=== PATIENT | female | born 1995 | race Caucasian/White ===

== ENCOUNTER 2017-05-24 04:53 | Outpatient (CLI) | payer OTHER | END 2017-05-24 04:54 | disposition critical access hospital (66) | LOC: EMS 04:53 | PROVIDERS: ATTEND Surgery | DX: R06.00 Dyspnea, unspecified (principal); R05 Cough | CPT/HCPCS: A0425; A0427 ==

== ENCOUNTER 2017-05-24 05:21 | Emergency (ER) | payer OTHER ==
[2017-05-24] MEDS ORDERED: IPRATROPIUM/ALBUTEROL 3 ML NEB INH STA (05:23)
[2017-05-24] MEDS ORDERED: IPRATROPIUM/ALBUTEROL 3 ML NEB INH ONE (05:31)
[2017-05-24] MEDS ORDERED: ALBUTEROL NEB 2.5 MG/3 ML INH STA ×2 (06:02→07:18)
--- NOTE | 2017-05-24 06:13 | ED Physician Documentation ---
PD HPI DYSPNEA - Stated complaint Stated Complaint: SOA - Chief complaint Chief Complaint: Resp - History obtained from History obtained from: Patient, EMS - History of Present Illness Timing - onset: How many days ago (3) Timing - onset during: Rest Timing - details: Gradual onset, Still present Inciting event(s): URI, Exposure (ie smoke) Improved by: O2, Inhaler/neb Worsened by: Laying flat, Coughing Associated symptoms: Cough, Wheezing. No: Fever, Chest pain / discomfort Similar symptoms before: Work up / diagnostics, Treatment Recently seen: Not recently seen - Additional information Additional information: Patient is a 21 year old female with a history of asthma who is presenting to the emergency department for wheezing and cough. Patient states that she has been coughing for the last few days and today on a fieldtrip and her symptoms got worse. patient had been using her inhaler about 4-5 times a day recently. Review of Systems Constitutional: denies: Fever, Chills Eyes: denies: Decreased vision, Photophobia Ears: denies: Ear pain, Drainage/discharge Nose: reports: Congestion Throat: denies: Sore throat Cardiac: denies: Chest pain / pressure Respiratory: reports: Dyspnea, Cough, Wheezing GI: denies: Abdominal Pain, Nausea, Vomiting : reports: Reviewed and negative Skin: denies: Rash Musculoskeletal: reports: Reviewed and negative Neurologic: denies: Generalized weakness, Focal weakness, Altered mental status , Headache, Head injury, LOC Immunocompromised: denies: Immunocompromised PD PAST MEDICAL HISTORY - Past Medical History Past Medical History: Yes Respiratory: Asthma - Past Surgical History Past Surgical History: No - Present Medications Home Medications: Ambulatory Orders Medication Instructions Recorded Confirmed Albuterol 1 puffs INH PRN PRN 05/24/17 05/24/17 Prednisone 40 mg PO DAILY 5 Days tablet 05/24/17 - Allergies Allergies/Adverse Reactions: Allergies Allergy/AdvReac Type Severity Reaction Status Date / Time latex Allergy Itching Verified 05/24/17 05:25 - Social History Does the pt smoke?: No Smoking Status: Never smoker Does the pt drink ETOH?: No - Immunizations Immunizations are current?: Yes PD ED PE NORMAL - Vitals Vital signs reviewed: Yes - General General: Alert and oriented X 3 - HEENT HEENT: Atraumatic, PERRL, Moist mucous membranes - Neck Neck: Supple, no meningeal sign, No JVD - Cardiac Cardiac: No murmur - Abdomen Abdomen: Soft, Non tender, Non distended - Derm Derm: Normal color, Warm and dry, No rash - Extremities Extremities: No deformity, No tenderness to palpate, No edema, No calf tenderness / cord - Neuro Neuro: Alert and oriented X 3, gwot ia/ilo intelligence support 2-12 intact, No motor deficit, No sensory deficit, Normal speech - Psych Psych: Normal mood, Normal affect PD ED PE EXPANDED - Cardiac Cardiac: Tachy - Respiratory Respiratory: Accessory mm use, Wheezing, Rhonchi, Right upper lobe, Right middle lobe, Right lower lobe, Left upper lobe, Left lower lobe Results - Vitals Vitals: Vital Signs - 24 hr 05/24/17 05/24/17 05/24/17 05:23 05:30 05:32 Temperature 36.9 C Heart Rate 115 H 110 H 126 H Respiratory 20 20 20 Rate Blood Pressure 105/63 105/72 O2 Saturation 96 100 05/24/17 06:10 Temperature Heart Rate 135 H Respiratory 18 Rate Blood Pressure O2 Saturation Oxygen O2 Source Room air - Rads (name of study) chest x-ray Radiology: Final report received (findings suggestive of bronchitis) PD MEDICAL DECISION MAKING - ED course Complexity details: reviewed old records, reviewed results, re-evaluated patient , considered differential, d/w patient, d/w family ED course: Patient was seen and examined at bedside. patient had already received 1 duoneb and solumedrol in the field. Patient was feeling better but was still wheezing. Patient was treated with 2 additional duonebs. chest x-ray was ordered due to patient's productive cough. when patient returned from x-ray she was still wheezing and was treated with additional albuterol. Patient's x- ray showed bronchitis but no acute pneumonia. Patient's wheezing continued to improve but was still present. Magnesium was ordered and started but made the patient feel sick so it was stopped. Patient needed a few more breathing treatments but was tachycardic and jittery. Patient was signed over to Dr. Carter pending re-evaluation and disposition. Departure - Departure Clinical Impression: Bronchitis, Asthma Condition: Good Instructions: ED Bronchitis Asthmatic Follow-Up: primary,care provider [Other] - Within 1 week Prescriptions: Prednisone 40 mg PO DAILY 5 Days tablet Comments: Your symptoms today are being caused by asthma and bronchitis. You will need to be on steroids for the next five days. You can increase your albuterol to every few hours as needed in the acute phase. If your symptoms persist or worsen you may return to this or any other emergency department as needed at any time.
[2017-05-24] MEDS ORDERED: ALBUTEROL NEB 2.5 MG/3 ML INH ONE ×2 (06:14→07:46)
--- NOTE | 2017-05-24 06:14 | XRAY Preliminary Report ---
Exam: XR Chest 2 View PA/LAT IMPRESSION: Suspected bronchitis. No consolidative pneumonia seen. [id number]
--- NOTE | 2017-05-24 06:23 | XRAY Report ---
EXAM: CHEST RADIOGRAPHY EXAM DATE: 05/24/2017 05:55 AM. CLINICAL HISTORY: Fever, productive cough. COMPARISON: None. TECHNIQUE: 2 views. FINDINGS: Lungs/Pleura: Bronchial wall thickening without focal pneumonia seen. No pneumothorax or effusion. Mediastinum: Heart and mediastinal contours are unremarkable. Other: None. IMPRESSION: Suspect bronchitis. No consolidative pneumonia seen. [facility] Referring Provider Line: [phone] SITE ID: [id number]
[2017-05-24] MEDS ORDERED: MAGNESIUM SULFATE 2 GRAM 2 GM/50 ML BAG IV ONE ×2 (06:40→06:55)
[2017-05-24 08:32] VITALS: BP 112/63
--- NOTE | 2017-05-24 10:27 | ED Physician Documentation ---
PD HPI DYSPNEA - Stated complaint Stated Complaint: SOA - Chief complaint Chief Complaint: Resp PD PAST MEDICAL HISTORY - Past Medical History Past Medical History: Yes Respiratory: Asthma - Past Surgical History Past Surgical History: No - Present Medications Home Medications: Ambulatory Orders Medication Instructions Recorded Confirmed Albuterol 1 puffs INH PRN PRN 05/24/17 05/24/17 Prednisone 40 mg PO DAILY 5 Days tablet 05/24/17 - Allergies Allergies/Adverse Reactions: Allergies Allergy/AdvReac Type Severity Reaction Status Date / Time latex Allergy Itching Verified 05/24/17 05:25 - Social History Does the pt smoke?: No Smoking Status: Never smoker Does the pt drink ETOH?: No - Immunizations Immunizations are current?: Yes Results - Vitals Vitals: Vital Signs - 24 hr 05/24/17 05/24/17 05/24/17 05:23 05:30 05:32 Temperature 36.9 C Heart Rate 115 H 110 H 126 H Respiratory 20 20 20 Rate Blood Pressure 105/63 105/72 O2 Saturation 96 100 05/24/17 05/24/17 05/24/17 06:10 07:45 08:31 Temperature Heart Rate 135 H 140 H 98 Respiratory 18 16 15 Rate Blood Pressure 112/63 O2 Saturation 98 Oxygen O2 Source Room air Departure - Departure Disposition: 01 Home, Self Care Clinical Impression: Bronchitis, Asthma Condition: Good Instructions: ED Bronchitis Asthmatic Follow-Up: primary,care provider [Other] - Within 1 week Prescriptions: Prednisone 40 mg PO DAILY 5 Days tablet Comments: Your symptoms today are being caused by asthma and bronchitis. You will need to be on steroids for the next five days. You can increase your albuterol to every few hours as needed in the acute phase. If your symptoms persist or worsen you may return to this or any other emergency department as needed at any time.
== END 2017-05-24 10:44 | disposition home or self-care (01) ==
LOC: ED 05:21
DX: J45.909 Unspecified asthma, uncomplicated (principal)
CPT/HCPCS: 71020; 94640; 94664; 96365; 99283; 99284; J7613; J7620